=== PATIENT | female | born 1985 | race Hispanic/Latino ===

== ENCOUNTER 2022-02-04 14:01 | Emergency (ER) | payer OTHER ==
[~2022-02-04] VITALS: Ht 162.6 cm; Wt 140.6 kg
== END 2022-02-04 15:43 | disposition home or self-care (01) ==
LOC: FSED 14:07
DX: R07.89 Other chest pain (principal)
CPT/HCPCS: 71045; 80053; 81003; 82553; 84484; 85025; 93005; 99284